=== PATIENT | male | born 1955 | race Caucasian/White ===

== ENCOUNTER 2020-10-02 20:52 | Emergency (ER) | payer BC ==
[~2020-10-02] VITALS: Ht 167.6 cm; Wt 79.4 kg
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
--- NOTE | 2020-10-02 21:40 | NUR ---
xray at bedside
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
--- NOTE | 2020-10-02 22:38 | NUR ---
Patient discharged to home in stable condition. Written and verbal after care instructions given. Patient verbalizes understanding of instruction. Pt ambulatory with a steady gait
[2020-10-02 22:42] VITALS: BP 118/84
== END 2020-10-02 22:38 | disposition home or self-care (01) ==
LOC: ER 20:54
DX: S69.82XA Other specified injuries of left wrist, hand and finger(s), initial encounter (principal); S49.81XA Other specified injuries of right shoulder and upper arm, initial encounter; V59.40XA Driver of pick-up truck or van injured in collision with unspecified motor vehicles in traffic accident, initial encounter; Y93.89 Activity, other specified; Y92.89 Other specified places as the place of occurrence of the external cause; Y99.8 Other external cause status
CPT/HCPCS: 73030-TC; 73110